=== PATIENT | male | born 1950 | race Caucasian/White ===

== ENCOUNTER 2017-01-04 16:09 | Emergency (ER) | payer MEDICARE, BC ==
[~2017-01-04 16:09] MED LIST: ALPRAZOLAM0.5 M3 PO; ALPRAZOLAM0.5 MG PO; ASPIRIN81 M1 PO; ATORVASTATIN CA40 M1 PO; B COMPLETE1 EACH PO; BACTRIM1 TAB PO; BUPROPION HCL150 M PO; CAPTOPRIL; CAPTOPRIL50 MG; CENTRUM SILVER1 EAC3 PO; CIALIS5 M1 PO; CIALIS5 MG PO; COUMADIN2 MG PO; COUMADIN2.5 MG; COUMADIN3 M1 PO; COUMADIN3 MG; COUMADIN3 MG PO; COUMADIN4 M1 PO; COUMADIN4 MG PO; COZAAR; COZAAR25 M1 PO; COZAAR25 MG PO; DYAZIDE 37.5/251 CAP; ECOTRIN81 MG; ENTERIC ASPIRIN81 MG; FISH OIL1 CAP PO; HYDROCHLOROTHIAZIDE; KRILL OIL PO; LAMICTAL XR200 M1 PO; LAMICTAL XR300 MG PO; LEXAPRO10 MG; LORAZEPAM0.5 MG; LOVENOX40 MG/0.4 SQ; MAGNESIUM100 MG PO; METOPROLOL SUCC25 M1 PO; NITROGLYCERIN0.4 M2 SL; NITROSTAT0.4 MG; OMEPRAZOLE20 M3 PO; ONE-A-DAY MEN'S1 TAB PO; PEPCID20 MG; PERCOCET 10 MG/1 TAB PO; PLAVIX75 MG; POTASSIUM GLUC500 MG PO; POTASSIUM99 M1 PO; STRATTERA80 MG; TOPROL XL25 MG; TOPROL XL25 MG PO; TRICOR; TRICOR145 MG; VITAMIN B1250 MCG PO; VITAMIN B650 M1 PO; VITAMIN C PO; VITAMIN C500 M6 PO; VITAMIN E1000 UNI2 PO; VITAMIN E400 UNI1 PO; VYTORIN 10/40 T1 TAB; VYTORIN 10/40 T1 TAB PO; WELLBUTRIN XL150 MG PO; WELLBUTRIN XL300 M1 PO; WELLBUTRIN XL300 M3 PO; WELLBUTRIN XL300 MG; XANAX0.25 MG; ZALEPLON10 MG PO; ZINC15 M1 PO; [UNRECOGNIZED DRUG - OTHER] PO
[2017-01-04] MEDS ORDERED: SYNTHROID50 MC1 PO (16:55)
[2017-01-04] MEDS ORDERED: MAXZIDE 37.5 M1 EAC1 PO (16:56)
[2017-01-04] MEDS ORDERED: NORVASC5 M2 PO (16:56)
[2017-01-04] MEDS ORDERED: FENOFIBRATE160 MG PO (16:57)
[2017-01-04] MEDS ORDERED: REMERON15 M1 PO (16:57)
[2017-01-04] MEDS ORDERED: LAMICTAL150 M1 PO (17:00)
[2017-01-04] MEDS ORDERED: COUMADIN3 M1 PO (17:35)
[2017-01-04] MEDS ORDERED: COD LIVER OIL473 ML PO (17:37)
[2017-04-07] MEDS ORDERED: VITAMIN D310000 UNI1 PO (10:06)
[2017-04-07] MEDS ORDERED: VITAMIN C1000 M1 PO (10:06)
[2017-04-07] MEDS ORDERED: KEFLEX500 M4 PO (10:07)
[2017-04-24] MEDS ORDERED: NORCO 5/3251 TAB PO (06:36)
[2017-05-17] MEDS ORDERED: NORCO 5-325 TA1 EACH PO (12:55)
[2017-05-17] MEDS ORDERED: COUMADIN3 M1 PO (14:16)
[2017-05-21] MEDS ORDERED: TRAVEL-EASE25 M1 PO (14:32)
== END 2017-01-04 18:14 ==
LOC: EDMED 16:09
PROC: 0CJS8ZZ Inspection of Larynx, Via Natural or Artificial Opening Endoscopic (ICD-10-PCS; principal; 2017-01-04)
DX: R09.89 Other specified symptoms and signs involving the circulatory and respiratory systems (principal); R13.10 Dysphagia, unspecified; I25.10 Atherosclerotic heart disease of native coronary artery without angina pectoris; I10 Essential (primary) hypertension; E78.5 Hyperlipidemia, unspecified; Z79.01 Long term (current) use of anticoagulants; Z79.899 Other long term (current) drug therapy

== ENCOUNTER 2017-06-20 17:11 | Emergency (ER) | payer MEDICARE, BC ==
[~2017-06-20] VITALS: Ht 177.8 cm; Wt 123.0 kg
[~2017-06-20 17:11] MED LIST changes: +COD LIVER OIL473 ML PO; +FENOFIBRATE160 MG PO; +KEFLEX500 M4 PO; +LAMICTAL150 M1 PO; +MAXZIDE 37.5 M1 EAC1 PO; +NORCO 5-325 TA1 EACH PO; +NORCO 5/3251 TAB PO; +NORVASC5 M2 PO; +REMERON15 M1 PO; +SYNTHROID50 MC1 PO; +TRAVEL-EASE25 M1 PO; +VITAMIN C1000 M1 PO; +VITAMIN D310000 UNI1 PO
[2017-06-20 18:23] LABS: URINE BILIRUBIN NEGATIVE (NEG); URINE BLOOD NEGATIVE (NEG); URINE GLUCOSE (UA) NEGATIVE (NEG); URINE KETONE NEGATIVE (NEG); URINE LEUKOCYTE ESTERASE NEGATIVE (NEG); URINE NITRITE NEGATIVE (NEG); URINE PROTEIN NEGATIVE (NEG); URINE SPECIFIC GRAVITY 1.015 (1.003-1.030)
[2017-06-20 18:24] LABS: URINE APPEARANCE CLEAR; URINE COLOR YELLOW
[2017-06-20 18:39] LABS: EOS % 0.3 % (0-7); HCT-HEMATOCRIT 41.5 % (36.0-53.5); HGB-HEMOGLOBIN 14.5 gm/dl (13.5-17.0); IMMATURE GRANULOCYTES ABSOLUTE 0.01 tho/cmm (0-0.03); IMMATURE GRANULOCYTES PERCENT 0.2 % (0-0.3); LYMPH ABSOLUTE COUNT 0.3 tho/cmm (0.8-4.5); MCHC MEAN CORPUSCULAR HGB CONC 34.9 % (32.0-36.0); MCV (MEAN CELL VOLUME) 91.6 fl (82.0-96.0); MEAN PLATELET VOLUME 9.8 cmc (9.4-12.4); MONOCYTE ABSOLUTE COUNT 0.3 tho/cmm (0.0-1.2); NEUTROPHIL ABSOLUTE COUNT 5.8 tho/cmm (1.6-8.0); NEUTROPHIL-AUTOMATED 5.8 tho/cmm (1.6-8.0); NEUTROPHILS % 90.5 % (40-80); PLATELET COUNT 181 tho/cmm (150-450); RED BLOOD COUNT 4.53 mil/cmm (4.40-5.70); RED CELL DISTRIBUTION WIDTH 14.1 % (12.4-16.4); WHITE BLOOD COUNT 6.4 tho/cmm (4.0-10.0)
[2017-06-20 18:54] LABS: ALBUMIN 3.8 g/dl (3.5-5.0); ALKALINE PHOSPHATASE 40 U/L (33-138); ALT/SGPT 60 U/L (12-78); BILIRUBIN,TOTAL 0.6 mg/dl (0.0-1.5); BLOOD UREA NITROGEN 25 mg/dl (6-24); C-REACTIVE PROTEIN 1.8 mg/dl (0-0.9); CALCIUM 8.5 mg/dl (8.5-10.5); CARBON DIOXIDE-VENOUS 26 mmol/L (22-32); CHLORIDE 106 mmol/l (96-110); CREATININE 1.29 mg/dl (0.60-1.30); GLUCOSE 139 mg/dL (70-110); LIPASE 133 U/L (73-393); SODIUM 137 mmol/L (135-145); eGFR VALUE FOR BLACK 67 mL/Min
[2017-06-20 18:56] LABS: ANION GAP 9 mmol/L (0-20); AST/SGOT 46 U/L (10-40); POTASSIUM 3.7 mmol/L (3.7-5.1)
[2017-06-20 21:21] LABS: INR 2.2 INR (0.9-1.1); PROTHROMBIN TIME 26.6 SECONDS (9.0-13.6)
[2017-06-20] MEDS ORDERED: ZOFRAN ODT4 MG PO (21:23)
== END 2017-06-20 21:32 ==
LOC: EDMED 17:11
PROVIDERS: Nurse Practitioner Family
DX: R11.2 Nausea with vomiting, unspecified (principal); R10.13 Epigastric pain; E11.9 Type 2 diabetes mellitus without complications; I25.2 Old myocardial infarction; I10 Essential (primary) hypertension; Z86.718 Personal history of other venous thrombosis and embolism; Z87.11 Personal history of peptic ulcer disease; Z86.73 Personal history of transient ischemic attack (TIA), and cerebral infarction without residual deficits; Z90.49 Acquired absence of other specified parts of digestive tract; Z95.5 Presence of coronary angioplasty implant and graft; Z79.899 Other long term (current) drug therapy; Z79.01 Long term (current) use of anticoagulants
CPT/HCPCS: J2405; J7030; Q9967